=== PATIENT | female | born 1955 ===

== ENCOUNTER 2017-08-23 08:43 | Day surgery (SDC) | payer OTHER ==
[2017-08-20 13:40] VITALS: BMI 24.9
[2017-08-23] MEDS ORDERED: Lactated Ringer's 1,000 ML IV ONE (11:25)
[2017-08-23] MEDS ORDERED: Propofol 10 mg/ml Inj (20 ML) ONE (11:29)
[2017-08-23] MEDS ORDERED: Lidocaine Hydrochloride 5 ML INJ ONE (11:29)
[2017-08-23 12:30] VITALS: TEMP 98.6; O2SAT 100
[2017-08-23 13:33] VITALS: PULSE 85
[2017-08-23 13:36] VITALS: BP 151/72; RESP 14
== END 2017-08-23 13:25 | disposition home or self-care (01) ==
LOC: C.ENDO 08:43
PROVIDERS: ATTEND Internal Medicine Gastroenterology
DX: Z12.11 Encounter for screening for malignant neoplasm of colon (principal); K26.9 Duodenal ulcer, unspecified as acute or chronic, without hemorrhage or perforation; K44.9 Diaphragmatic hernia without obstruction or gangrene; K25.9 Gastric ulcer, unspecified as acute or chronic, without hemorrhage or perforation; K64.8 Other hemorrhoids
CPT/HCPCS: 43239; 45378; 88305; 88312; 88313; 88342; J2704; J7120